=== PATIENT | male | born 1980 | race Caucasian/White ===

== ENCOUNTER 2020-03-18 13:05 | Emergency (ER) | payer MEDICAID ==
[~2020-03-18] VITALS: Ht 177.8 cm; Wt 113.4 kg
[2020-03-18 13:09] VITALS: Ht 177.8 cm; Wt 113.4 kg
[2020-03-18 15:07] VITALS: BP 122/69
== END 2020-03-18 15:07 | disposition home or self-care (01) ==
LOC: ED 13:05
DX: S61.102A Unspecified open wound of left thumb with damage to nail, initial encounter (principal); W22.8XXA Striking against or struck by other objects, initial encounter; Y93.89 Activity, other specified; Y92.89 Other specified places as the place of occurrence of the external cause; Y99.8 Other external cause status
CPT/HCPCS: 90715; A4570; Q0092

== ENCOUNTER 2020-03-23 19:34 | Emergency (ER) | payer MEDICAID ==
[~2020-03-23] VITALS: Ht 177.8 cm; Wt 91.4 kg
[2020-03-23 19:59] VITALS: Ht 177.8 cm; Wt 91.4 kg
[2020-03-23 21:43] VITALS: BP 111/78
== END 2020-03-23 21:43 | disposition home or self-care (01) ==
LOC: ED 19:34
DX: S67.02XD Crushing injury of left thumb, subsequent encounter (principal); X58.XXXD Exposure to other specified factors, subsequent encounter

== ENCOUNTER 2020-04-06 14:34 | Emergency (ER) | payer MEDICAID ==
[~2020-04-06] VITALS: Ht 177.8 cm; Wt 91.2 kg
[2020-04-06 14:46] VITALS: BP 137/77; Ht 177.8 cm; Wt 91.2 kg
== END 2020-04-06 15:32 | disposition home or self-care (01) ==
LOC: ED 14:34
DX: S67.02XD Crushing injury of left thumb, subsequent encounter (principal); W27.8XXD Contact with other nonpowered hand tool, subsequent encounter

== ENCOUNTER 2020-11-17 14:43 | Emergency (ER) | payer MEDICAID ==
[~2020-11-17] VITALS: Ht 177.8 cm; Wt 93.6 kg
[2020-11-17 15:10] VITALS: Ht 177.8 cm; Wt 93.6 kg
[2020-11-17] MEDS ORDERED: IBU400 M1 PO (16:54)
[2020-11-17 17:19] VITALS: BP 128/90
== END 2020-11-17 17:19 | disposition home or self-care (01) ==
LOC: ED 14:43
DX: S60.021A Contusion of right index finger without damage to nail, initial encounter (principal); W23.0XXA Caught, crushed, jammed, or pinched between moving objects, initial encounter; Y93.89 Activity, other specified; Y92.89 Other specified places as the place of occurrence of the external cause; Y99.8 Other external cause status